=== PATIENT | male | born 1990 | race African-American/Black ===

== ENCOUNTER 2020-05-11 15:14 | Emergency (ER) | payer SELFPAY ==
[~2020-05-11] VITALS: Ht 185.4 cm; Wt 81.8 kg
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
--- NOTE | 2020-05-11 17:22 | Diagnostic Imaging Report ---
EXAM: Right hand radiograph EXAM DATE: 05/11/2020 COMPARISON: None. HISTORY: Injury to the right hand with pain and swelling. TECHNIQUE: 3 views of the right hand. FINDINGS: There is cortical irregularity along the base of the 2nd metacarpal bone best seen on the AP image. No other acute fracture, dislocation, or destructive osseous process. The joint spaces are preserved. Soft tissue swelling about the right hand. IMPRESSION: Cortical irregularity along the base of the 2nd metacarpal could represent a nondisplaced fracture. Recommend correlation with physical exam and followup radiograph in 14 days. Dictated by: Dictated on workstation # [id number]
--- NOTE | 2020-05-11 18:34 | NUR ---
SPLINT PLACED BY Jazmyn YUNG APRN.
[2020-05-11 18:35] VITALS: BP 126/83
== END 2020-05-11 18:33 | disposition home or self-care (01) ==
LOC: ER 15:18
DX: S62.340A Nondisplaced fracture of base of second metacarpal bone, right hand, initial encounter for closed fracture (principal); F17.200 Nicotine dependence, unspecified, uncomplicated; Y04.0XXA Assault by unarmed brawl or fight, initial encounter
CPT/HCPCS: 29125; 73130; A4565

== ENCOUNTER 2021-07-23 22:57 | Emergency (ER) | payer SELFPAY ==
[~2021-07-23] VITALS: Ht 188 cm; Wt 78.0 kg
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
[2021-07-23] MEDS ORDERED: IBUPROFEN 600 MG (MOTRIN) TAB PO ONE (23:45)
[2021-07-24 00:39] VITALS: BP 140/99
--- NOTE | 2021-07-24 06:29 | Diagnostic Imaging Report ---
EXAM: ANKLE, LEFT, 3 VIEWS INDICATION: Trauma. Left ankle pain. COMPARISON: None. FINDINGS: Mildly displaced and comminuted fracture of the distal left fibular metaphysis at the level of the tibial plafond. There is also a linear lucency through the posterior left distal tibial cortex which could represent a posterior malleolar fracture. No radiopaque foreign bodies. No other fractures identified. IMPRESSION: 1. Mildly displaced and comminuted fracture of the distal left fibular metaphysis at the level of the tibial plafond. 2. Linear lucency seen only on the lateral views the posterior cortex of the left tibia could represent additional fracture. This could be better evaluated with CT. Dictated by: Dictated on workstation # [id number]
== END 2021-07-24 00:41 | disposition home or self-care (01) ==
LOC: EDUNIT# 22:57 → ER 22:58
DX: S82.832A Other fracture of upper and lower end of left fibula, initial encounter for closed fracture (principal); W10.8XXA Fall (on) (from) other stairs and steps, initial encounter
CPT/HCPCS: 29515; 73610

== ENCOUNTER 2021-07-26 14:51 | Emergency (ER) | payer SELFPAY ==
[~2021-07-26] VITALS: Ht 185 cm; Wt 75.0 kg
[2021-07-26] MEDS ORDERED: ACHD5005 PO ×2 (15:09→15:14)
--- NOTE | 2021-07-26 15:09 | ED Lower Extremity ---
General Chief Complaint: Lower Extremity Stated Complaint: L ANKLE PAIN SEEN 07/23 Source: patient Exam Limitations: no limitations History of Present Illness Date Seen by Provider: Jul 26, 2021 Time Seen by Provider: 14:52 Initial Comments 31-year-old male with no significant past medical history seen here 3 days ago and had a left distal fibula fracture placed in a posterior slab splint. He was taking ibuprofen and Tylenol for pain but the pain is too much and he has been calling the orthopedic office to try to get an appointment, but they say the phone number just keeps ringing. Came in because he needed better pain control. Has not been walking on it, and denies pain in any new places. Allergies and Home Medications Allergies Coded Allergies: No Known Drug Allergies (Unverified , 07/23/21) Patient Home Medication List Home Medication List Reviewed: Yes Hydrocodone Bit/Acetaminophen (HYDROcodone/APAP 5 MG/325 MG TAB) 1 Tab Tab, 1 TAB PO Q6H PRN for PAIN-SEVERE (8-10) Prescribed by: KATE AU on 07/26/21 1510 Review of Systems Constitutional: No chills, No fever EENTM: No blurred vision Respiratory: No cough Cardiovascular: No chest pain Gastrointestinal: no symptoms reported Genitourinary: no symptoms reported Musculoskeletal: joint pain Skin: no symptoms reported Psychiatric/Neurological: No Symptoms Reported All Other Systems Reviewed Negative Unless Noted: Yes Past Txcegwf-Iufrvh-Thxwcu Hx Patient Social History Tobacco Use?: Yes Alcohol Use?: Yes Immunizations Up To Date First/Initial COVID19 Vaccinat: Apr 2021 Second COVID19 Vaccination Efrem: May 2021 Past Medical History Surgeries: No Orthopedic Respiratory: No Cardiac: No Neurological: No Genitourinary: No Gastrointestinal: No Musculoskeletal: No Endocrine: No Physical Exam Vital Signs Vital Signs - First Documented 07/26/21 14:55 Temp 36.3 Pulse 97 Resp 18 B/P (MAP) 147/90 (109) Pulse Ox 97 O2 Delivery Room Air Capillary Refill : Height, Weight, BMI Height: '" Weight: lbs. oz. kg; 22.00 BMI Method: General Appearance: WD/WN, no apparent distress HEENT: PERRL/EOMI, normal ENT inspection, pharynx normal Neck: non-tender, full range of motion, supple, normal inspection Cardiovascular: regular rate, rhythm, no edema, no murmur Respiratory: chest non-tender, lungs clear, normal breath sounds, no respiratory distress, no accessory muscle use Gastrointestinal: normal bowel sounds, non tender, soft; No distended, No guarding, No rebound Hips: bilateral hip non-tender, bilateral hip normal inspection, bilateral hip normal range of motion, bilateral hip no evidence of injury Legs: bilateral leg non-tender, bilateral leg normal inspection, bilateral leg normal range of motion, bilateral leg no evidence of injury Knees: bilateral knee non-tender, bilateral knee normal inspection, bilateral knee normal range of motion, bilateral knee no evidence of injury, bilateral knee other (He is not tender along the proximal fibula) Ankles: right ankle non-tender, right ankle normal inspection, right ankle normal range of motion, right ankle no evidence of injury; left ankle other (In a splint, toes are normal-appearing with normal sensation and capillary refill, I ended the splint and the compartments are soft around the ankle, does have tenderness along the lateral malleolus with some swelling) Feet: bilateral foot other (No tenderness along the Lisfranc or fifth metatarsal) Neurologic/Tendon: normal sensation, normal motor functions, normal tendon functions Neurologic/Psychiatric: no motor/sensory deficits, alert, normal mood/affect Skin: normal color, warm/dry Lymphatic: no adenopathy Progress/Results/Core Measures Results/Orders Vital Signs/I&O 07/26/21 14:55 Temp 36.3 Pulse 97 Resp 18 B/P (MAP) 147/90 (109) Pulse Ox 97 O2 Delivery Room Air Progress Progress Note : Progress Note 31-year-old male with above history coming in due to left ankle pain. ABCs intact and vitals are stable on presentation. I reviewed his x-ray from 3 days ago and he does not fact have a distal left fibula fracture which is minimally displaced. I undid the dressing on his splint just to check his skin and everyt chung is intact and there is no signs of compartment syndrome. Neurovascularly intact as well. I then replaced the splint with a new Dhruv bandage. He has not had any new events, so I will not get a repeat x-ray at this time. I give him multiple orthopedic offices that he can try to schedule appointment with. He was then discharged home in stable condition with strict return precautions Departure Impression Primary Impression: Closed fracture of distal end of fibula Qualified Codes: S82.832D - Other fracture of upper and lower end of left fibula, subsequent encounter for closed fracture with routine healing Disposition: 01 HOME, SELF-CARE Condition: Stable Departure-Patient Inst. Decision time for Depature: 15:07 Referrals: NO,LOCAL PHYSICIAN (PCP) Primary Care Physician ARMANI BLUM MD, MICHAEL P MD Patient Instructions: Ankle Fracture (DC) Add. Discharge Instructions: You can follow-up with any orthopedic doctor that you would like such as Dr. Napoles, Dr. Blum, or with orthopedic for states in [place] which the numbers below. Take ibuprofen 600 to 800 mg every 6 hours on a schedule. Also ice the area but try not to get it wet. If you are having severe pain on top of this you can take the hydrocodone. [facility] [place] - [phone] Scripts Hydrocodone Bit/Acetaminophen (HYDROcodone/APAP 5 MG/325 MG TAB) 1 Tab Tab 1 TAB PO Q6H PRN for PAIN-SEVERE (8-10) for 3 Days, #12 TAB 0 Refills Prov: KATE AU MD 07/26/21 Work/School Note: Work Release Form Date Seen in the Emergency Department: Jul 26, 2021 Return to Work: Jul 27, 2021 Restrictions: Need Release from Doctor Restrictions: Needs ortho follow up before any physical labor KATE AU MD Jul 26, 2021 15:09
[2021-07-26 15:17] VITALS: BP 147/90
== END 2021-07-26 15:25 | disposition home or self-care (01) ==
LOC: EDUNIT# 14:51 → ER 14:52
DX: S82.832A Other fracture of upper and lower end of left fibula, initial encounter for closed fracture (principal); Z72.0 Tobacco use; X58.XXXA Exposure to other specified factors, initial encounter
CPT/HCPCS: 99282